=== PATIENT | male | born 1935 | race African-American/Black ===

== ENCOUNTER → 2020-06-14 | Outpatient (CLI) | payer MEDICARE, MEDICAID ==
[~2020-06-14] MED LIST: ASPI-1073 PO; ESOM40CA PO; LOSA100T32 PO; METF-414 PO; METO-539 PO; SIMV-46 PO; SOLI5TAB PO; ZOLP10TA6 PO
== END | disposition home or self-care (01) ==
LOC: CT 09:28
PROVIDERS: ATTEND Internal Medicine Cardiovascular Disease
DX: G31.1 Senile degeneration of brain, not elsewhere classified (principal); I67.82 Cerebral ischemia; J44.9 Chronic obstructive pulmonary disease, unspecified; K75.3 Granulomatous hepatitis, not elsewhere classified
CPT/HCPCS: 71250

== ENCOUNTER → 2025-05-02 | Outpatient (CLI) | payer MEDICARE, MEDICAID ==
[~2025-05-02] MED LIST changes: -LOSA100T32 PO; +LOSA100T33 PO
== END | disposition home or self-care (01) ==
LOC: MRI 08:08
PROVIDERS: ATTEND Internal Medicine Cardiovascular Disease
DX: M47.817 Spondylosis without myelopathy or radiculopathy, lumbosacral region (principal); M51.370 Other intervertebral disc degeneration, lumbosacral region with discogenic back pain only; M48.07 Spinal stenosis, lumbosacral region; M47.814 Spondylosis without myelopathy or radiculopathy, thoracic region; M41.86 Other forms of scoliosis, lumbar region; R53.1 Weakness
CPT/HCPCS: 72148